=== PATIENT | male | born 2005 | race African-American/Black ===

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

== ENCOUNTER 2024-06-13 09:35 | Emergency (ER) | payer SELFPAY ==
--- NOTE | ~2024-06-13 | XR_ITS ---
XR chest 2V Ordering provider: Angeles Garcia APRN History: 19 years Male with . wheezing LL lung AND COUGH . Comparison: None. FINDINGS: MEDIASTINUM: The cardiac silhouette is not enlarged. LUNGS: No infiltrates, effusions or pneumothorax. OTHER: No free air under the diaphragm. IMPRESSION: No acute cardiopulmonary pathology. Reviewed, dictated and finalized at location A. TY PUMP OPERATOR
[2024-06-13 09:37] VITALS: BP 146/82; PULSE 99; RESP 16; TEMP 36.4; O2SAT 100
[2024-06-13 09:39] VITALS: O2SAT 100
--- NOTE | 2024-06-13 09:46 | ED_ITS ---
HPI - URI/Sore Throat General Chief Complaint: Upper Respiratory Infection Stated Complaint: URI Time Seen by Provider: 06/13/24 09:36 History of Present Illness HPI Narrative: Patient is a 19-year-old male presents to the ER with 2 day history of cough, shortness of breath, wheezing, nausea, and generalized weakness. He reports his symptoms started with a cough and have progressively gotten worse. Patient endorses a history of asthma and has been using his inhaler more recently. He denies any recent fevers, chest pain, abdominal pain. Related Data Allergies Allergy/AdvReac Type Severity Reaction Status Date / Time No Known Allergies Allergy Verified 10/14/22 11:42 Review of Systems Review of Systems: All systems reviewed & are unremarkable except as noted in HPI and below PMFSH Past Medical History Medical History No active medical problems Surgical History Surgical History No pertinent past surgical history Social History Social History Smoking status: Never smoker Exam Narrative: GENERAL: Well appearing, well-nourished, non-toxic, in no acute distress. HEAD: Normocephalic, atraumatic. NECK: Supple. No adenopathy, no masses. RESPIRATORY: Airway patent, respirations nonlabored. Wheezing & coarse breath sounds MARTA and LL lobe. R lung clear. CARDIOVASCULAR: Regular rate and rhythm without murmurs, rubs, or gallops. Peripheral pulses 2+ and equal bilaterally. ABDOMINAL: Soft, nontender, nondistended, no hepatosplenomegaly. Normoactive BS. MUSCULOSKELETAL: Moves all extremities. Strength/ROM intact without gross deformities. SKIN: Warm, dry, normal color. No rashes. NEURO: A&O X3. Speech clear. Cranial nerves II-XII grossly intact. Steady gait. No ataxic movements. PSYCHIATRIC: Appropriate mood and affect. Normal interaction. Course Vital Signs Vital signs: Vital Signs Temperature 36.4 C 06/13/24 09:37 Pulse Rate 99 06/13/24 09:37 Respiratory Rate 16 06/13/24 09:37 Blood Pressure 146/82 H 06/13/24 09:37 Pulse Oximetry 100 06/13/24 09:37 Temperature 36.4 C 06/13/24 09:37 Pulse Rate 91 06/13/24 10:01 Respiratory Rate 20 06/13/24 10:01 Blood Pressure 146/82 H 06/13/24 09:37 Pulse Oximetry 100 06/13/24 09:39 Oxygen Delivery Room Air 06/13/24 09:39 MDM - URI/Sore Throat MDM Narrative Medical decision making narrative: Patient is a 19-year-old male presents to the ER with 2 day history of cough, shortness of breath, wheezing, nausea, and generalized weakness. He reports his symptoms started with a cough and have progressively gotten worse. Patient endorses a history of asthma and has been using his inhaler more recently. He denies any recent fevers, chest pain, abdominal pain. Labs Ordered: COVID/flu/ RSV swab Imaging Ordered: chest x-ray Results: Patient's chest x-ray indicates No acute cardiopulmonary pathology. His respiratory panel indicate patient has RSV. Diagnosis: RSV Patient Education/Shared MDM: Results shared with the patient. He endorses improvement after DuoNeb administration. Patient would like a shot of Toradol and Decadron prior to discharge home. He will be sent home with a Medrol Dosepak and new prescription for an inhaler. Patient verbalizes understanding and is in agreement plan. Differential Diagnosis Differential diagnosis: Likely upper respiratory infection, sinusitis, viral infection, bronchitis and influenza Lab Data Attestation: I reviewed the patient's lab results. Labs: Lab Results 06/13/24 Range/Units 09:52 Influenza A (RT-PCR) Negative (Negative) Influenza B (RT-PCR) Negative (Negative) RSV (RT-PCR) Positive A (Negative) SARS-CoV-2 RNA (RT-PCR) Negative (Negative) Imaging Data Attestation: I personally reviewed and interpreted this imaging study as follows: Radiologist's impression: Impressions Chest X-Ray 06/13/24 10:16 IMPRESSION: No acute cardiopulmonary pathology. Discharge Plan Discharge Clinical Impression: Upper respiratory infection, Respiratory syncytial virus (RSV) as cause of acute bronchitis Patient Disposition: Home, Self-Care Condition: Stable Instructions: Antibiotic Form, Acute Bronchitis (ED), Viral Syndrome (ED), RSV (Respiratory Syncytial Virus) Infection (ED) Additional Instructions: Please return to the ER with an worsening symptoms. Follow-up with primary care provider in the next 2-3 days. Take all medications as prescribed. Patient Language: [place] Prescriptions: New albuterol sulfate 90 mcg/actuation aerosol powdr breath activated 2 inh inhalation Q4-6H PRN (Reason: shortness of breath or wheezing) Qty: 1 0RF methylprednisolone [Medrol (Kenny)] 4 mg tablets,dose pack See Rx Instructions .ROUTE .COMPLEX Qty: 21 0RF Rx Instructions: for 6 days No Action naproxen 500 mg tablet 500 mg PO BID Qty: 20 0RF Follow-up/Referrals: UNKNOWN,DOCTOR [Primary Care Provider] - Time of Disposition: 11:09
[2024-06-13] MEDS: ACETAMINOPHEN 500 MG TABLET 1000 MG PO (09:50)
[2024-06-13] MEDS: IPRATROPIUM 0.5 MG/ALBUTEROL SULFATE 2.5 MG AMPUL.NEB 3 ML INHALATION (09:54)
[2024-06-13 09:57] VITALS: PULSE 89; RESP 20
[2024-06-13 10:01] VITALS: PULSE 91; RESP 20
[2024-06-13 10:32] LABS: Influenza A QL RT-PCR Negative (Negative); Influenza B QL RT-PCR Negative (Negative); RSV RNA, RT-PCR Positive (Negative); SARS-CoV-2 RNA PCR Negative (Negative)
[2024-06-13] MEDS: KETOROLAC (*BKC) 60 MG/2 ML VIAL IM (11:18)
[2024-06-13] MEDS: dexAMETHasone SOD PHOS INJ 10 MG/ML 1 ML VIAL IM (11:19)
[2024-06-13 11:25] VITALS: BP 135/82; PULSE 75; RESP 16; O2SAT 100
== END 2024-06-13 11:27 | disposition home or self-care (01) ==
PROVIDERS: Emergency Provider Registered Nurse
DX: J20.5 Acute bronchitis due to respiratory syncytial virus (principal); J06.9 Acute upper respiratory infection, unspecified; Z20.822 Contact with and (suspected) exposure to COVID-19
CPT/HCPCS: 71046; 87637; 94640; 96372; 99284; A9270; J1100; J1885